=== PATIENT | male | born 1955 | race Caucasian/White ===

== ENCOUNTER 2019-02-09 18:52 | Emergency (ER) | payer BC ==
[2019-02-09 19:09] VITALS: TEMP 98.4
[2019-02-09] MEDS ORDERED: HYDROcodone/APAP 7.5-325MG 1 EACH TAB PO ONE ×2 (19:17→19:24)
--- NOTE | 2019-02-09 19:42 | XR ---
EXAMINATION TYPE: XR chest 2V DATE OF EXAM: 02/09/2019 COMPARISON: NONE HISTORY: Trauma. Fall. Pain. TECHNIQUE: Frontal and lateral views of the chest are obtained. FINDINGS: Heart and mediastinum are normal. Lungs are clear. Diaphragm is normal. There are surgical clips at the base of the neck on the right side. There is no sign of pleural effusion or pneumothora x. IMPRESSION: No active cardiopulmonary disease. Normal heart.
--- NOTE | 2019-02-09 19:43 | XR ---
EXAMINATION TYPE: XR wrist complete LT DATE OF EXAM: 02/09/2019 COMPARISON: NONE HISTORY: Fall. Pain. TECHNIQUE: 4 views FINDINGS: There is impacted comminuted transverse fracture distal radial metaphysis. There is no disl ocation. Distal ulna is intact. IMPRESSION: Impacted distal radius comminuted fracture.
--- NOTE | 2019-02-09 19:45 | XR ---
EXAMINATION TYPE: XR hand complete LT DATE OF EXAM: 02/09/2019 COMPARISON: NONE HISTORY: Fall. Pain. TECHNIQUE: 3 views FINDINGS: Metacarpals are intact. Carpal bones are intact. There is impacted distal radius comminuted fracture. Distal ulna is intact. There is no dislocation. Interphalangeal joint spaces are fairly no rmal. There is 4 mm metallic foreign body in the soft tissues between first and second metacarpals. IMPRESSION: Impacted comminuted distal radius fracture. Small metallic foreign body.
[2019-02-09] MEDS ORDERED: MORPHINE SULFATE 4 MG/ML SYRINGE IM STA (20:25)
--- NOTE | 2019-02-09 21:10 | ED ---
General Adult HPI - General Chief complaint: Extremity Injury, Upper Stated complaint: Wrist injury Time Seen by Provider: 02/09/19 19:09 Source: patient, family, RN notes reviewed, old records reviewed Mode of arrival: ambulatory Limitations: no limitations - History of Present Illness Initial comments: 63-year-old male patient comes to ED after sustaining a fall approximately 4 feet off a ladder. Patient says he became unstable, fell onto his left side of his left outstretched arm. He denies any trauma to head or neck. Patient denies any use of blood thinners. Patient primary complaint is left wrist pain at the distal radius. Patient denies any other complaints. Patient ambulatory without difficulty. Patient denies any difficulty breathing, pain in chest, pain abdomen. Patient denies any headache, changes in vision, cervical spinal pain. Patient denies any back pain. Patient denies any loss of bowel or bladder control, saddle anesthesia, lower extremity weakness. Systemic: Pt denies fatigue, myalgia, fever/chills, rash. Pt denies weakness, night sweats, weight loss. Neuro: Pt denies headache, visual disturbances, syncope or pre-syncope. HEENT: Pt denies ocular discharge or irritation, otalgia, rhinorrhea, pharyngitis or notable lymphadenopathy. Cardiopulmonary: Pt denies chest pain, SOB, heart palpitations, dyspnea on exe rtion. Abdominal/GI: Pt denies abdominal pain, n/v/d. : Pt denies dysuria, burning w/ urination, frequency/urgency. Denies new onset urinary or bowel incontinence. MSK: Pt denies myalgia, loss of strength or function in extremities. Neuro: Pt denies new onset weakness, paresthesias. - Related Data Home Medications Medication Instructions Recorded Confirmed Atorvastatin Calcium [Lipitor] 20 mg PO HS 03/06/14 10/12/17 Ranitidine HCl [Zantac] 150 mg PO HS 03/06/14 10/12/17 Levothyroxine Sodium [Synthroid] 100 mcg PO DAILY 10/12/17 10/12/17 Allergies Allergy/AdvReac Type Severity Reaction Status Date / Time moxifloxacin HCl Allergy Unknown Unknown Verified 02/09/19 19:08 [From Avelox] Review of Systems ROS Statement: Those systems with pertinent positive or pertinent negative responses have been documented in the HPI. ROS Other: All systems not noted in ROS Statement are negative. 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 Past Anesthesia/Blood Transfusion Reactions: No Reported Reaction, Family History of Problems w/ Anesthesia Additional Past Anesthesia/Blood Transfusion Reaction / Comment(s): paternal niece had some kind of problem w/anesthesia-possibly seizure?-unsure Past Psychological History: No Psychological Hx Reported Smoking Status: Former smoker Past Alcohol Use History: None Reported Past Drug Use History: None Reported - Past Family History Father Family Medical History: Cancer, Coronary Artery Disease (CAD), Diabetes Mellitus Mother Family Medical History: Cancer General Exam - General Exam Comments Initial Comments: Constitutional: NAD, AOX3, Pt has pleasant affect. HEENT: NC/AT, trachea midline, neck supple, no lymphadenopathy. Posterior pharynx non erythematous, without exudates. External ears appear normal, without discharge. Mucous membranes moist. Eyes PERRLA, EOM intact. There is no scleral icterus. No pallor noted. Cardiopulmonary: RRR, no murmurs, rubs or gallops, no JVD noted. Lungs CTAB in anterior and posterior goss. No peripheral edema. Abdominal exam: Abdomen soft and non-distended. Abdomen non-tender to palpation in all 4 quadrants. Bowel sounds active in LLQ. No hepatosplenomegaly. No ecchymosis Neuro: CN II-XII intact. No nuchal rigidity. No focal deficit, no facial droop. No cervical spinal tenderness. MSK: Mild tenderness to palpation at distal radius. Patient full range of motion of hand. Radial pulse +2. Activity for less than 2 seconds. Patient placed in thumb spica splint. Neurovascularly intact after splint placement. No posterior calf tenderness bilaterally, homans sign negative bilaterally. Posterior tibialis and radial pulse +2 bilaterally. Sensation intact in upper and lower extremities. Full active ROM in upper and lower extremities, 5/5 stregnth. Limitations: no limitations Course Vital Signs 02/09/19 19:05 Temperature 98.4 F Pulse Rate 74 Respiratory 18 Rate Blood Pressure 147/76 O2 Sat by Pulse 99 Oximetry Medical Decision Making - Medical Decision Making 63-year-old male patient comes to ED after sustaining a fall approximately 4 feet off a ladder. Patient says he became unstable, fell onto his left side of his left outstretched arm. He denies any trauma to head or neck. Patient denies any use of blood thinners. Patient primary complaint is left wrist pain at the distal radius. Patient denies any other complaints. Patient ambulatory without difficulty. Patient denies any difficulty breathing, pain in chest, pain abdomen. Patient denies any headache, changes in vision, cervical spinal pain. Patient denies any back pain. Patient denies any loss of bowel or bladder control, saddle anesthesia, lower extremity weakness. Pt VSS, afebrile. Physical exam displayed: Mild tenderness to palpation at distal radius. Patient full range of motion of hand. Radial pulse +2. Activity for less than 2 seconds. Patient placed in thumb spica splint. Neurovascularly intact after splint placement. Plain film of hand and wrist displayed impacted comminuted distal radius fracture. Chest x-ray splint acute process. This from work, patient stated metal, also states that is possible that this is left from the site of an implant during cx treatment. Nonacute finding. Patient placed in thumb spica splint. Patient to follow up with orthopedic surgeon tomorrow. Per patient request, [facility] Patient return to ER if condition worsens. Case discussed with Dr. Amaral Disposition Clinical Impression: Distal radius fracture Disposition: HOME SELF-CARE Condition: Stable Instructions (If sedation given, give patient instructions): Wrist Fracture in Adults (ED) Additional Instructions: Patient to adhere to previously discussed treatment plan and will take medication(s) as directed. Patient to follow up with PCP in 1-2 days. Patient to return to ED if symptoms do not improve. Follow up with orthopedic surgeon tomorrow. Return to ER if condition worsens. Is patient prescribed a controlled substance at d/c from ED?: No Referrals: Fernando Moran MD [Primary Care Provider] - 1-2 days Kai Romero DO [Medical Doctor] - 1-2 days Frandy Garibay DO [Doctor of Osteopathic Medicine] - 1-2 days
[2019-02-09 21:16] VITALS: BP 134/65; PULSE 78; RESP 16
== END 2019-02-09 21:14 | disposition home or self-care (01) ==
LOC: EC 18:52
DX: S52.592A Other fractures of lower end of left radius, initial encounter for closed fracture (principal); K21.9 Gastro-esophageal reflux disease without esophagitis; E07.9 Disorder of thyroid, unspecified; E78.5 Hyperlipidemia, unspecified; Z79.899 Other long term (current) drug therapy; Z79.890 Hormone replacement therapy; Z88.1 Allergy status to other antibiotic agents; Z85.828 Personal history of other malignant neoplasm of skin; Z87.891 Personal history of nicotine dependence; Z92.21 Personal history of antineoplastic chemotherapy; Z92.3 Personal history of irradiation; W11.XXXA Fall on and from ladder, initial encounter; Y92.009 Unspecified place in unspecified non-institutional (private) residence as the place of occurrence of the external cause
CPT/HCPCS: 73110; 73130; 71046; 99284; 29125; 96372; J2270

== ENCOUNTER → 2019-02-11 | Outpatient (CLI) | payer BC ==
[2019-02-11 13:34] LABS: Basophils % (A) 0 %; Eosinophils # (A) 0.2 k/uL (0-0.7); Eosinophils % (A) 2 %; HCT 45.9 % (39.0-53.0); Lymphocytes # (A) 0.9 k/uL (1.0-4.8); Lymphocytes % (A) 12 %; MCH 28.6 pg (25.0-35.0); MCHC 32.6 g/dL (31.0-37.0); MCV 87.7 fL (80.0-100.0); Monocytes # (A) 0.3 k/uL (0-1.0); Monocytes % (A) 3 %; Neutrophils # (A) 6.5 k/uL (1.3-7.7); Neutrophils % (A) 82 %; Platelet Count 218 k/uL (150-450); RBC 5.24 m/uL (4.30-5.90); RDW 13.2 % (11.5-15.5); WBC 7.9 k/uL (3.8-10.6)
[2019-02-11 13:35] LABS: Appearance,Urine Clear (Clear); Bilirubin,Urine Negative (Negative); Blood,Urine Negative (Negative); Color,Urine Yellow; Glucose,Urine (UA) Negative (Negative); Ketones,Urine Negative (Negative); Leukocyte Esterase,Urine Negative (Negative); Nitrite,Urine Negative (Negative); Protein,Urine Negative (Negative); Urobilinogen,Urine <2.0 mg/dL (<2.0)
[2019-02-11 13:43] LABS: INR 0.9 (<1.2); Partial Thromboplastin Time 22.1 sec (22.0-30.0); Prothrombin Time 9.8 sec (9.0-12.0)
[2019-02-11 14:08] LABS: ALT 28 U/L (21-72); AST 30 U/L (17-59); Albumin 4.5 g/dL (3.5-5.0); Albumin/Globulin Ratio 1.7; Alkaline Phosphatase 92 U/L (38-126); Anion Gap 10 mmol/L; Blood Urea Nitrogen 20 mg/dL (9-20); Calcium 10.1 mg/dL (8.4-10.2); Carbon Dioxide 25 mmol/L (22-30); Chloride 103 mmol/L (98-107); Globulin 2.6 g/dL; Glucose 167 mg/dL (74-99); Potassium 4.6 mmol/L (3.5-5.1); Sodium 138 mmol/L (137-145); Total Protein 7.1 g/dL (6.3-8.2)
== END ==
LOC: LABMAIN 13:01
PROVIDERS: ATTEND Family Medicine
DX: Z01.812 Encounter for preprocedural laboratory examination (principal)
CPT/HCPCS: 36415; 80053; 81003; 85025; 85610; 85730

== ENCOUNTER → 2019-02-17 | Day surgery (SDC) | payer BC ==
[2019-02-15 09:17] VITALS: BMI 27.1
[~2019-02-17] MED LIST: BUPIVACAIN-EPI 0.5%-1:200,000 30 ML VIAL SQ ONE; DEXAMETHASONE SOD PHOSPHATE 10 MG/ML 1 ML VIAL IV ONE; HYDROcodone/APAP 5-325MG 1 EACH TAB PO ONE; KETOROLAC 30 MG/ML 1 ML VIAL IVP ONE; LABETALOL SYRINGE 5 MG/ML IVP ONE; LACTATED RINGERS 1,000 ML IV ONE; LACTATED RINGERS 1,000 ML IV SCH; LIDOCAINE 1% 20 ML VIAL (10MG/ML) FOR IV START INTRADERMA ONE; LIDOCAINE 1% INJ 10MG/ML (20 ML MDV) ONE; LIDOCAINE 2%-EPI 1:100,000 20 ML VIAL ONE; MIDAZOLAM (PF) 2 MG/2 ML VIAL IV ONE; MIDAZOLAM 2 MG/2 ML VIAL IV PRN; MIDAZOLAM 2 MG/2 ML VIAL ONE; ONDANSETRON 4 MG/2 ML VIAL IVP ONE; PROPOFOL 10 MG/ML 20 ML VIAL IV ONE; ROPIVACAINE 5 MG/ML 30 ML VIAL ONE; SCOPOLAMINE 1.5MG/72HR PATCH TRANSDERM ONE; SUCCINYLCHOLINE CHLORIDE 100 MG/5 ML SYR IV ONE; ceFAZolin IN SWFI 2 GM/20 ML SYRINGE IVP ONE; fentaNYL (PF) 50 MCG/ML 2 ML AMP ONE
[2019-02-17 17:25] VITALS: TEMP 97.5
[2019-02-17] MEDS: MEPERIDINE 50 MG/ML SYRINGE IVP ONE ×2 (17:36→17:42)
[2019-02-17] MEDS: HYDROmorphone 0.5 MG/0.5 ML SYRINGE IVP PRN ×3 (17:36→18:05)
--- NOTE | 2019-02-17 17:42 | FL ---
EXAMINATION TYPE: FL guidance operating room, XR wrist limited LT DATE OF EXAM: 02/17/2019 CLINICAL HISTORY: Left wrist fracture. TECHNIQUE: Fluoroscopy. Intraoperative limited views left wrist. COMPARISON: Left wrist x-ray February 09, 2019.. FINDINGS: Fluoroscopic guidance was provided during open reduction internal fixation procedure perfo rmed by Dr. Romero. A total of 1 minute 44 seconds of fluoroscopic time was utilized during the procedure and 2 spot intraoperative images are acquired. Intraoperative images acquired show placement of dorsal fixating plate through comminuted intra-artic ular fracture distal radial meta-epiphysis with stable alignment. IMPRESSION: As Above.
[2019-02-17 18:19] VITALS: RESP 17
[2019-02-17 18:31] VITALS: BP 140/82; PULSE 83
--- NOTE | 2019-02-18 10:19 | P.ONQ ---
Anesthesiology Proc Note - PNB - Peripheral Nerve Block Performed Left Infraclavicular Single Time Out Performed: Yes (1300) Procedure Start Time: 13:00 Procedure Stop Time: 13:10 Indication: Acute Post-Operative Pain, Dx/Pain Location (Left wrist pain), Requested by physician Sedation Type: Sedate with meaningful contact maintained Preparation: Sterile Prep Position: Supine Catheter: None Needle Types: On-Q Needle Size: 100mm (4") Needle Gauge: 21 Technique: Ultrasound Injectate: 0.5% Ropivacaine (see comment for volume) (20ml) Blood Aspirated: No Pain Paresthesia on Injection Noted: No Resistance on Injection: Normal Events: Uneventful and Well Tolerated
--- NOTE | 2019-02-18 15:34 | P.OP ---
Date of Procedure: 02/17/19 Preoperative Diagnosis: Comminuted, extra-articular left distal radius fracture (3-part) Postoperative Diagnosis: Comminuted, extra-articular left distal radius fracture (3-part) Procedure(s) Performed: Open reduction and internal fixation of comminuted, extra-articular left distal radius fracture (3-part) Implants: [employer]umed Acu-Loc2 standard left volar locking plate Anesthesia: GETA, regional, local Surgeon: Kai Romero Refinery Operator #1: Meg Allen Estimated Blood Loss (ml): 5 Condition: stable Disposition: PACU Indications for Procedure: The patient is a 63-year-old male who sustained a distal radius fracture after a fall from a ladder. Treatment options (and associated risks and benefits) were discussed in the office. Surgical treatment was recommended. In preop, the patient denied any additional questions or concerns and wished to proceed with surgery. Consent forms were signed. The operative site was confirmed and marked. Description of Procedure: The patient was administered a regional nerve block by the anesthesia team and then was brought to the operating suite. The patient was positioned supine with the operative limb on an arm board. All bony prominences were well-padded. Anesthesia was administered uneventfully. Prophylactic IV antibiotics were administered. A tourniquet was placed on the operative arm which was then prepped and draped in standard, sterile fashion. A timeout was performed which confirmed the patient, the operative side, the site and the procedure to be performed. All team members expressed agreement. The limb was exsanguinated with an Esmarch and the tourniquet was inflated. A standard volar FCR approach was utilized. The skin was incised sharply. The subcutaneous tissue were bluntly spread. The FCR sheath was incised and the tendon was mobilized. The radial artery was identified and protected throughout the case. Blunt dissection proceeded down to the pronator quadratus. There was a traumatic, transverse rent in the muscle belly at the level of the fracture. This was sharply extended along its radial border and & elevated ulnarly. The fracture site was visualized. The primary fracture line was transverse across the metaphysis. There was a separate fragment of the volar metaphyseal cortex with comminution dorsally. A manual reduction was performed but full church of radial height was not achieved. The brachioadialis tendon was identified and partially released to alleviate its deforming force, taking care to protect the first dorsal compartment tendons. A Beaufort elevator was used to gently release the impacted dorsal fragments and manipulate the position of the fracture fragments. The reduction maneuver was repeated and satisfactory initial alignment was confirmed with fluoroscopy. With the fracture held in reduced position, a 0.062 K wire was inserted percutaneously into the radial styloid and advanced across the fracture and into metaphysis for provisional reduction. This did not afford satisfactory stability and a second K wire was introduced in a similar fashion. The plate was selected, based on the patients anatomy and fracture pattern, and was positioned on the volar radius. It was provisionally pinned in place with K- wires and its position was confirmed on imaging. A cortical screw was drilled, measured and inserted into the oblong hole of the shaft. The position of the plate was checked on orthogonal views: residual dorsal angulation remained. The distal K wires holding the plate were removed. The K wires in the styloid were backed out and the fracture was re-reduced, using the plate as a reduction tool. The percutaneous K wires were readvanced to stabilize the fracture. Provisional K wires were reinserted to secure the plate in position. Fracture reduction and plate position were confirmed on orthogonal imaging. Locking screws were then drilled, measured and inserted distally, confirming length and trajectory with fluoroscopy. The screws were drilled without violating the dorsal cortex. An additional cortical screw was drilled and inserted to further secure the plate to the metaphysis. The percutaneous and provisional K wires were removed. Final x-rays were obtained which revealed satisfactory reduction of the fracture. A 20-degree inclined lateral view was obtained to confirm extra-articular screw placement. The wrist was then ranged under live fluoroscopy - no motion of the fracture fragments or fixation construct was appreciated. The tourniquet was released after 77 minutes at 250 mm Hg. Hemostasis was obtained with electrocautery. The wound was thoroughly irrigated with normal saline. The pronator was loosely repaired with interrupted 2-0 Vicryl sutures. The subcutaneous tissues were reapproximated with interrupted 3-0 Vicryl sutures. The incision was closed with a running 4-0 nylon suture. Marcaine with epinephrine was injected into the perioperative subcutaneous tissues for adjunctive postoperative pain control and hemostasis. A sterile dressing was applied followed by a resting volar splint. All sponge, needle and instrument counts were correct at the end of the case. The patient tolerated the procedure well and was taken to the recovery room in stable condition.
== END | disposition home or self-care (01) ==
LOC: OR 11:49
PROVIDERS: ATTEND Orthopaedic Surgery
DX: S52.552A Other extraarticular fracture of lower end of left radius, initial encounter for closed fracture (principal); W11.XXXA Fall on and from ladder, initial encounter; E78.5 Hyperlipidemia, unspecified; E03.9 Hypothyroidism, unspecified; K21.9 Gastro-esophageal reflux disease without esophagitis; Z87.891 Personal history of nicotine dependence; Z85.819 Personal history of malignant neoplasm of unspecified site of lip, oral cavity, and pharynx; Z79.890 Hormone replacement therapy; Z79.891 Long term (current) use of opiate analgesic; Z79.899 Other long term (current) drug therapy; Z88.1 Allergy status to other antibiotic agents
CPT/HCPCS: 25607; 64415; 73100; C1713; J2250 ×2; J1100; J2175; J2405; J2001; J3010; J1885; J2795; J0330; J2704; J1170; J0690; 64413

== ENCOUNTER 2021-07-25 15:21 | Emergency (ER) | payer BC ==
[2021-07-25 16:45] VITALS: TEMP 98.6
[2021-07-25 17:31] LABS: Basophils % (A) 0 %; Eosinophils # (A) 0.1 k/uL (0-0.7); Eosinophils % (A) 1 %; HCT 42.6 % (39.0-53.0); Lymphocytes # (A) 1.2 k/uL (1.0-4.8); Lymphocytes % (A) 9 %; MCH 29.2 pg (25.0-35.0); MCV 88.6 fL (80.0-100.0); Mean Platelet Volume 7.9; Monocytes # (A) 0.5 k/uL (0-1.0); Monocytes % (A) 4 %; Neutrophils % (A) 85 %; Platelet Count 204 k/uL (150-450); RBC 4.81 m/uL (4.30-5.90); RDW 12.6 % (11.5-15.5); WBC 12.9 k/uL (3.8-10.6)
[2021-07-25 17:40] LABS: INR 0.9 (<1.2); Partial Thromboplastin Time 23.1 sec (22.0-30.0); Prothrombin Time 10.1 sec (9.0-12.0)
[2021-07-25 17:45] LABS: ALT 28 U/L (4-49); AST 37 U/L (17-59); African American GFR (CKD) >90 (>60 ml/min/1.73 sqM); Albumin 4.3 g/dL (3.5-5.0); Alkaline Phosphatase 113 U/L (38-126); Anion Gap 8 mmol/L; Blood Urea Nitrogen 22 mg/dL (9-20); Calcium 9.8 mg/dL (8.4-10.2); Carbon Dioxide 24 mmol/L (22-30); Chloride 105 mmol/L (98-107); Glucose 95 mg/dL (74-99); Non-African American GFR(CKD) 78 (>60 ml/min/1.73 sqM); Potassium 4.3 mmol/L (3.5-5.1); Sodium 137 mmol/L (137-145); Total Bilirubin 1.4 mg/dL (0.2-1.3); Total Protein 7.1 g/dL (6.3-8.2)
[2021-07-25] MEDS ORDERED: ASPIRIN 81 MG PO STA (19:16)
--- NOTE | 2021-07-25 19:17 | ED ---
General Adult HPI - General Chief complaint: Chest Pain Stated complaint: Abnormal EKG Time Seen by Provider: 07/25/21 18:58 Source: patient Mode of arrival: ambulatory Limitations: no limitations - History of Present Illness Initial comments: Dictation was produced using [employer] dictation software. please excuse any grammatical, word or spelling errors. Chief Complaint: 66-year-old male presents with episode of chest pain a week ago History of Present Illness: 66-year-old male history of cancer COPD dyslipidemia presents to the emergency department for abnormal EKG. Patient with his primary care physician for a checkup. He is told his PCP that he had episode of chest pain a days ago he states that it was a sharp pain to his anterior chest. It lasted for couple minutes then resolved spontaneously. No associated diaphores is, shortness of breath or no radiation. Patient has not had any chest pain since. He told his primary care doctor about it and EKG was performed. He was told that his EKG was abnormal and that he should come to the emergency department to be evaluated. Patient has a history of dyslipidemia. No history of hypertension or diabetes. He is nonsmoker and never smoked. He does have some family history of cardiac disease. He is completely asymptomatic at this time he has no complaints. The ROS documented in this emergency department record has been reviewed and confirmed by me. Those systems with pertinent positive or negative responses have been documented in the HPI. All other systems are other negative and/or noncontributory. PHYSICAL EXAM: General Impression: Alert and oriented x3, not in acute distress HEENT: Normocephalic atraumatic, extra-ocular movements intact, pupils equal and reactive to light bilaterally, mucous membranes moist. Cardiovascular: Heart regular rate and rhythm Chest: Able to complete full sentences, no retractions, no tachypnea Abdomen: abdomen soft, non-tender, non-distended, no organomegaly Musculoskeletal: Pulses present and equal in all extremities, no peripheral edema Motor: no focal deficits noted Neurological: CN II-XII grossly intact, no focal motor or sensory deficits noted Skin: Intact with no visualized rashes Psych: Normal affect and mood ED course: 66-year-old male presents to the emergency department for chest pain experience a days ago. It sounded like he was atypical. Patient has no history of coronary artery disease. Ends upon arrival are within acceptable limits. Patient is well-appearing at the bedside. EKG from primary care physician's office was reviewed showing S waves that were circled. EKG from primary care physician's office does not show any signs of ischemia or infarction. Patient's history is very atypical. EKG performed here is unremarkable. Labs as ordered by a TPA. CBC, coag panel, metabolic panel is unremarkable. Troponin is negative. Disposition options were discussed with patient. He was encouraged to stay for a second troponin however did not want to wait. He lives nearby and to return to the emergency department if he has any issues. EKG interpretation: Ventricular rate 76, normal sinus rhythm, NH interval 170, QRS 80, QTc 441. No NH prolongation, no QTC prolongation, no ST or T-wave changes noted. Overall, this EKG is unremarkable - Related Data Home Medications Medication Instructions Recorded Confirmed Atorvastatin Calcium [Lipitor] 20 mg PO HS 03/06/14 02/17/19 Ranitidine HCl [Zantac] 150 mg PO HS 03/06/14 02/17/19 Levothyroxine Sodium [Synthroid] 150 mcg PO DAILY 10/12/17 02/17/19 Acetaminophen Tab [Tylenol Tab] 650 mg PO Q4H PRN 02/15/19 02/17/19 HYDROcodone/APAP 5-325MG [[place] 1 tab PO Q6HR PRN 02/15/19 02/17/19 5-325] Allergies Allergy/AdvReac Type Severity Reaction Status Date / Time moxifloxacin HCl Allergy Unknown Rash/Hives Verified 07/25/21 16:44 [From Avelox] Review of Systems ROS Statement: Those systems with pertinent positive or pertinent negative responses have been documented in the HPI. ROS Other: All systems not noted in ROS Statement are negative. 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 Past Anesthesia/Blood Transfusion Reactions: No Reported Reaction Additional Past Anesthesia/Blood Transfusion Reaction / Comment(s): "PATIENT STATES NO KNOWN FAMILY PROBLEM WITH ANESTHESIA " Past Psychological History: No Psychological Hx Reported Smoking Status: Never smoker Past Alcohol Use History: Occasional Past Drug Use History: None Reported - Past Family History Father Family Medical History: Cancer, Diabetes Mellitus Mother Family Medical History: Cancer Sister(s) Family Medical History: Cancer General Exam Limitations: no limitations Course Vital Signs 07/25/21 16:42 Temperature 98.6 F Pulse Rate 77 Respiratory 18 Rate Blood Pressure 116/66 O2 Sat by Pulse 98 Oximetry Medical Decision Making - Lab Data Result diagrams: 07/25/21 17:07 07/25/21 17:07 Lab Results 07/25/21 07/25/21 07/25/21 Range/Units 17:07 17:07 17:07 WBC 12.9 H (3.8-10.6) k/uL RBC 4.81 (4.30-5.90) m/uL Hgb 14.0 (13.0-17.5) gm/dL Hct 42.6 (39.0-53.0) % MCV 88.6 (80.0-100.0) fL MCH 29.2 (25.0-35.0) pg MCHC 33.0 (31.0-37.0) g/dL RDW 12.6 (11.5-15.5) % Plt Count 204 (150-450) k/uL MPV 7.9 Neutrophils % 85 % Lymphocytes % 9 % Monocytes % 4 % Eosinophils % 1 % Basophils % 0 % Neutrophils # 11.0 H (1.3-7.7) k/uL Lymphocytes # 1.2 (1.0-4.8) k/uL Monocytes # 0.5 (0-1.0) k/uL Eosinophils # 0.1 (0-0.7) k/uL Basophils # 0.0 (0-0.2) k/uL PT 10.1 (9.0-12.0) sec INR 0.9 (<1.2) APTT 23.1 (22.0-30.0) sec Sodium 137 (137-145) mmol/L Potassium 4.3 (3.5-5.1) mmol/L Chloride 105 (98-107) mmol/L Carbon Dioxide 24 (22-30) mmol/L Anion Gap 8 mmol/L BUN 22 H (9-20) mg/dL Creatinine 1.00 (0.66-1.25) mg/dL Est GFR (CKD-EPI)AfAm >90 (>60 ml/min/1.73 sqM) Est GFR (CKD-EPI)NonAf 78 (>60 ml/min/1.73 sqM) Glucose 95 (74-99) mg/dL Calcium 9.8 (8.4-10.2) mg/dL Total Bilirubin 1.4 H (0.2-1.3) mg/dL AST 37 (17-59) U/L ALT 28 (4-49) U/L Alkaline Phosphatase 113 (38-126) U/L Troponin I (0.000-0.034) ng/mL Total Protein 7.1 (6.3-8.2) g/dL Albumin 4.3 (3.5-5.0) g/dL 07/25/21 Range/Units 17:07 WBC (3.8-10.6) k/uL RBC (4.30-5.90) m/uL Hgb (13.0-17.5) gm/dL Hct (39.0-53.0) % MCV (80.0-100.0) fL MCH (25.0-35.0) pg MCHC (31.0-37.0) g/dL RDW (11.5-15.5) % Plt Count (150-450) k/uL MPV Neutrophils % % Lymphocytes % % Monocytes % % Eosinophils % % Basophils % % Neutrophils # (1.3-7.7) k/uL Lymphocytes # (1.0-4.8) k/uL Monocytes # (0-1.0) k/uL Eosinophils # (0-0.7) k/uL Basophils # (0-0.2) k/uL PT (9.0-12.0) sec INR (<1.2) APTT (22.0-30.0) sec Sodium (137-145) mmol/L Potassium (3.5-5.1) mmol/L Chloride (98-107) mmol/L Carbon Dioxide (22-30) mmol/L Anion Gap mmol/L BUN (9-20) mg/dL Creatinine (0.66-1.25) mg/dL Est GFR (CKD-EPI)AfAm (>60 ml/min/1.73 sqM) Est GFR (CKD-EPI)NonAf (>60 ml/min/1.73 sqM) Glucose (74-99) mg/dL Calcium (8.4-10.2) mg/dL Total Bilirubin (0.2-1.3) mg/dL AST (17-59) U/L ALT (4-49) U/L Alkaline Phosphatase (38-126) U/L Troponin I <0.012 (0.000-0.034) ng/mL Total Protein (6.3-8.2) g/dL Albumin (3.5-5.0) g/dL Disposition Clinical Impression: Chest pain Disposition: HOME SELF-CARE Condition: Good Instructions (If sedation given, give patient instructions): Chest Pain (ED) Is patient prescribed a controlled substance at d/c from ED?: No Referrals: Fernando Moran MD [Primary Care Provider] - 1-2 days
[2021-07-25 19:56] VITALS: BP 125/80; PULSE 82; RESP 16
== END 2021-07-25 19:22 | disposition home or self-care (01) ==
LOC: EC 15:21
DX: R07.89 Other chest pain (principal); J44.9 Chronic obstructive pulmonary disease, unspecified; K21.9 Gastro-esophageal reflux disease without esophagitis; E78.5 Hyperlipidemia, unspecified; E07.9 Disorder of thyroid, unspecified; Z85.818 Personal history of malignant neoplasm of other sites of lip, oral cavity, and pharynx
CPT/HCPCS: 36415; 80053; 84484; 85025; 85610; 85730; 99285

== ENCOUNTER 2024-03-05 02:55 | Emergency (ER) | payer BC, MEDICARE ==
[2024-03-05 03:32] LABS: Glucose,Whole Blood 191 mg/dL (70-110)
--- NOTE | 2024-03-05 03:41 | ED ---
General Adult HPI - General Chief complaint: Altered Mental Status Stated complaint: AMS Time Seen by Provider: 03/05/24 03:27 Source: family Mode of arrival: ambulatory - History of Present Illness Initial comments: Dictation was produced using [employer] dictation software. please excuse any grammatical, word or spelling errors. Chief Complaint: 68-year-old male presents to the emergency department for altered mentation History of Present Illness: Patient 68-year-old male. History of present illness obtained from family members at the bedside. They report that patient is having a TIA. He states that they were in [place] recently he was diagnosed with TIA from the eye doctor and while he was in [place]. Patient went to bed in usual state of health. Family were at the bedside who is a broken sleeper noticed that he woke up this displaying signs of bizarre behavior including whistling and hallucinations. 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 He also reports that he had difficulty walking. Patient denies any complaints. He states that his family is overreacting to what his symptoms are. The ROS documented in this emergency department record has been reviewed and confirmed by me. Those systems with pertinent positive or negative responses have been documented in the HPI. All other systems are other negative and/or noncontributory. - Related Data Home Medications Medication Instructions Recorded Confirmed Atorvastatin Calcium [Lipitor] 20 mg PO HS 03/06/14 02/17/19 Ranitidine HCl [Zantac] 150 mg PO HS 03/06/14 02/17/19 Levothyroxine Sodium [Synthroid] 150 mcg PO DAILY 10/12/17 02/17/19 Acetaminophen Tab [Tylenol Tab] 650 mg PO Q4H PRN 02/15/19 02/17/19 HYDROcodone/APAP 5-325MG [[place] 1 tab PO Q6HR PRN 02/15/19 02/17/19 5-325] Allergies Allergy/AdvReac Type Severity Reaction Status Date / Time moxifloxacin HCl Allergy Unknown Rash/Hives Verified 03/05/24 03:04 [From Avelox] Review of Systems ROS Statement: Those systems with pertinent positive or pertinent negative responses have been documented in the HPI. ROS Other: All systems not noted in ROS Statement are negative. 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 Past Anesthesia/Blood Transfusion Reactions: No Reported Reaction Additional Past Anesthesia/Blood Transfusion Reaction / Comment(s): "PATIENT STATES NO KNOWN FAMILY PROBLEM WITH ANESTHESIA " Past Psychological History: No Psychological Hx Reported Smoking Status: Never smoker Past Alcohol Use History: Occasional Past Drug Use History: None Reported - Past Family History Father Family Medical History: Cancer, Diabetes Mellitus Mother Family Medical History: Cancer Sister(s) Family Medical History: Cancer General Exam - General Exam Comments Initial Comments: PHYSICAL EXAM: General Impression: Alert and oriented x3, not in acute distress HEENT: Normocephalic atraumatic, extra-ocular movements intact, pupils equal and reactive to light bilaterally, mucous membranes moist. Cardiovascular: Heart regular rate and rhythm Chest: Able to complete full sentences, no retractions, no tachypnea Abdomen: abdomen soft, non-tender, non-distended, no organomegaly Musculoskeletal: Pulses present and equal in all extremities, no peripheral sean a Motor: no focal deficits noted Neurological: CN II-XII grossly intact, no focal motor or sensory deficits noted, NIH of 0 Skin: Intact with no visualized rashes Psych: Normal affect and mood Course Vital Signs 03/05/24 03/05/24 03/05/24 02:59 04:00 05:00 Temperature 98.2 F Pulse Rate 104 H 94 89 Respiratory 18 10 L 29 H Rate Blood Pressure 121/72 101/61 101/73 O2 Sat by Pulse 96 97 97 Oximetry - Reevaluation(s) Reevaluation #1: 03/05/24 03:40 Patient has NIH score of 0. Family reports that his symptoms began 1 hour ago however he was last seen normal last night. Clinical presentation does not reveal any focal neurologic deficits to suggest TIA or CVA. Family explains th at symptoms were more or less like vague altered mentation including symptoms of brief episode of gait difficulties, hallucinations and random whistling in the middle of the night EKG Findings - EKG Comments: EKG Findings:: My EKG interpretation: Ventricular rate 95, sinus rhythm,. 144, QRS 101, QTc 401. No KS prolongation, no QTC prolongation, no ST or T-wave changes noted. Overall, this EKG is unremarkable Medical Decision Making - Medical Decision Making Was pt. sent in by a medical professional or institution (, SIMI, DIGITAL MARKETING SPECIALIST, urgent care, hospital, or prison...) When possible be specific @ -No Did you speak to anyone other than the patient for history (EMS, parent, family, police, friend...)? What history was obtained from this source @ -No Did you review nursing and triage notes (agree or disagree)? Why? @ -I reviewed and agree with nursing and triage notes Were old charts reviewed (outside hosp., previous admission, EMS record, old EKG, old radiological studies, urgent care reports/EKG's, prison records)? Report findings @ -No old charts were reviewed Differential Diagnosis (chest pain, altered mental status, abdominal pain women, abdominal pain men, vaginal bleeding, musculoskeletal, weakness, fever, dyspnea, syncope, headache, dizziness, GI bleed, back pain, seizure, CVA, palpatations, mental health)? @ -Differential Altered Mental Status: Hypoglycemia, DKA, hypercapnia, ETOH, overdose, CO poisoning, trauma, myxedema coma, HTN encephalopathy, infection, encephalitis, psychosis, intercranial hemorrhage, hepatic encephalopathy, meningitis, CVA, this is not meant to be an all-inclusive list EKG interpreted by me (3pts min.). @ -See above X-rays interpreted by me (1pt min.). @ -Chest x-ray is nonacute CT interpreted by me (1pt min.). @ -CT brain is nonacute U/S interpreted by me (1pt. min.). @ -None done What testing was considered but not performed or refused? (CT, X-rays, U/S, labs)? Why? @ -None What meds were considered but not given or refused? Why? @ -None Did you discuss the management of the patient with other professionals (professionals i.e. SIMI Andrade, DIGITAL MARKETING SPECIALIST, lab, RT, psych nurse, protective services social worker, ornamental rail installer, teacher, aeronautical engineering officer, dependency case manager)? Give summary @ -No Was smoking cessation discussed for >3mins.? @ -No Was critical care preformed (if so, how long)? @ -No Were there social determinants of health that impacted care today? How? (Homelessness, low income, unemployed, alcoholism, drug addiction, transportation, low edu. Level, literacy, decrease access to med. care, long term, rehab)? @ -No Was there de-escalation of care discussed even if they declined (Discuss DNR or withdrawal of care, Hospice)? DNR status @ -No What co-morbidities impacted this encounter? (DM, HTN, Smoking, COPD, CAD, Canc er, CVA, ARF, Chemo, Hep., AIDS, mental health diagnosis, sleep apnea, morbid obesity)? @ -None Was patient admitted / discharged? Hospital course, mention meds given and route, prescriptions, significant lab abnormalities, going to OR and other pertinent info. @ -68-year-old male presents emergency department for episode of bizarre behavior. Vital signs upon arrival are within acceptable limits. Physical examination is benign. Patient is alert and oriented x 4 with NIH score of 0. Patient having no gait abnormalities. Explanation of patient's symptoms were nonfocal. Laboratory evaluation is unremarkable. CT imaging is negative. Patient observed emergency department for approximately 3 hours. Reevaluated bedside 5:48 AM on to be in stable medical condition. Disposition options were discussed with patient and family member at the bedside they request discharge to follow-up with primary care doctor. Return precautions discussed. Undiagnosed new problem with uncertain prognosis? @ -No Drug Therapy requiring intensive monitoring for toxicity (Heparin, Nitro, Insulin, Cardizem)? @ -No Were any procedures done? @ -No Diagnosis/symptom? Acute, or Chronic, or Acute on Chronic? Uncomplicated (without systemic symptoms) or Complicated (systemic symptoms)? @ -Bizarre behavior Side effects of treatment? @ -No Exacerbation, Progression, or Severe Exacerbation? @ -No Poses a threat to life or bodily function? How? (Chest pain, [place], GA, pneumonia, PE, COPD, DKA, ARF, appy, cholecystitis, CVA, Diverticulitis, Homicidal, Suicidal, threat to staff... and all critical care pts) @ -No - Lab Data Result diagrams: 03/05/24 03:25 03/05/24 03:25 Lab Results 03/05/24 03/05/24 03/05/24 Range/Units 03:25 03:25 03:25 WBC 12.8 H (3.8-10.6) k/uL RBC 4.98 (4.30-5.90) m/uL Hgb 14.2 (13.0-17.5) gm/dL Hct 43.8 (39.0-53.0) % MCV 88.0 (80.0-100.0) fL MCH 28.5 (25.0-35.0) pg MCHC 32.4 (31.0-37.0) g/dL RDW 12.8 (11.5-15.5) % Plt Count 213 (150-450) k/uL MPV 8.4 Neutrophils % 91 % Lymphocytes % 4 % Monocytes % 3 % Eosinophils % 1 % Basophils % 0 % Neutrophils # 11.6 H (1.3-7.7) k/uL Lymphocytes # 0.6 L (1.0-4.8) k/uL Monocytes # 0.3 (0-1.0) k/uL Eosinophils # 0.2 (0-0.7) k/uL Basophils # 0.1 (0-0.2) k/uL PT 10.7 (10.0-12.5) sec INR 1.0 (<1.2) APTT 24.9 (22.0-30.0) sec Sodium 136 L (137-145) mmol/L Potassium 4.4 (3.5-5.1) mmol/L Chloride 106 (98-107) mmol/L Carbon Dioxide 22 (22-30) mmol/L Anion Gap 8 mmol/L BUN 16 (9-20) mg/dL Creatinine 1.08 (0.66-1.25) mg/dL Est GFR (CKD-EPI)AfAm 81 (>60 ml/min/1.73 sqM) Est GFR (CKD-EPI)NonAf 70 (>60 ml/min/1.73 sqM) Glucose 202 H (74-99) mg/dL POC Glucose (mg/dL) (70-110) mg/dL POC Glu Application Security Developer ID Calcium 9.6 (8.4-10.2) mg/dL Total Bilirubin 0.8 (0.2-1.3) mg/dL AST 49 (17-59) U/L ALT 45 (4-49) U/L Alkaline Phosphatase 154 H (38-126) U/L Total Protein 6.8 (6.3-8.2) g/dL Albumin 4.1 (3.5-5.0) g/dL Serum Alcohol <10 mg/dL 03/05/24 Range/Units 03:31 WBC (3.8-10.6) k/uL RBC (4.30-5.90) m/uL Hgb (13.0-17.5) gm/dL Hct (39.0-53.0) % MCV (80.0-100.0) fL MCH (25.0-35.0) pg MCHC (31.0-37.0) g/dL RDW (11.5-15.5) % Plt Count (150-450) k/uL MPV Neutrophils % % Lymphocytes % % Monocytes % % Eosinophils % % Basophils % % Neutrophils # (1.3-7.7) k/uL Lymphocytes # (1.0-4.8) k/uL Monocytes # (0-1.0) k/uL Eosinophils # (0-0.7) k/uL Basophils # (0-0.2) k/uL PT (10.0-12.5) sec INR (<1.2) APTT (22.0-30.0) sec Sodium (137-145) mmol/L Potassium (3.5-5.1) mmol/L Chloride (98-107) mmol/L Carbon Dioxide (22-30) mmol/L Anion Gap mmol/L BUN (9-20) mg/dL Creatinine (0.66-1.25) mg/dL Est GFR (CKD-EPI)AfAm (>60 ml/min/1.73 sqM) Est GFR (CKD-EPI)NonAf (>60 ml/min/1.73 sqM) Glucose (74-99) mg/dL POC Glucose (mg/dL) 191 H (70-110) mg/dL POC Glu Application Security Developer ID Perez, Tawnya Calcium (8.4-10.2) mg/dL Total Bilirubin (0.2-1.3) mg/dL AST (17-59) U/L ALT (4-49) U/L Alkaline Phosphatase (38-126) U/L Total Protein (6.3-8.2) g/dL Albumin (3.5-5.0) g/dL Serum Alcohol mg/dL Disposition Clinical Impression: Altered mental status Disposition: HOME SELF-CARE Condition: Good Instructions (If sedation given, give patient instructions): Altered Mental Status (ED) Is patient prescribed a controlled substance at d/c from ED?: No Referrals: Randall West MD [Primary Care Provider] - 1-2 days Time of Disposition: 05:49
[2024-03-05 03:53] VITALS: RESP 18; TEMP 98.2
[2024-03-05 03:55] LABS: Basophils # (A) 0.1 k/uL (0-0.2); Basophils % (A) 0 %; Eosinophils # (A) 0.2 k/uL (0-0.7); Eosinophils % (A) 1 %; HCT 43.8 % (39.0-53.0); HGB 14.2 gm/dL (13.0-17.5); Lymphocytes # (A) 0.6 k/uL (1.0-4.8); Lymphocytes % (A) 4 %; MCH 28.5 pg (25.0-35.0); MCHC 32.4 g/dL (31.0-37.0); Mean Platelet Volume 8.4; Monocytes # (A) 0.3 k/uL (0-1.0); Monocytes % (A) 3 %; Neutrophils # (A) 11.6 k/uL (1.3-7.7); Neutrophils % (A) 91 %; Platelet Count 213 k/uL (150-450); RBC 4.98 m/uL (4.30-5.90); RDW 12.8 % (11.5-15.5); WBC 12.8 k/uL (3.8-10.6)
[2024-03-05 04:00] LABS: ALT 45 U/L (4-49); AST 49 U/L (17-59); African American GFR (CKD) 81 (>60 ml/min/1.73 sqM); Albumin 4.1 g/dL (3.5-5.0); Alcohol <10 mg/dL; Alkaline Phosphatase 154 U/L (38-126); Anion Gap 8 mmol/L; Blood Urea Nitrogen 16 mg/dL (9-20); Calcium 9.6 mg/dL (8.4-10.2); Carbon Dioxide 22 mmol/L (22-30); Chloride 106 mmol/L (98-107); Glucose 202 mg/dL (74-99); Non-African American GFR(CKD) 70 (>60 ml/min/1.73 sqM); Partial Thromboplastin Time 24.9 sec (22.0-30.0); Potassium 4.4 mmol/L (3.5-5.1); Prothrombin Time 10.7 sec (10.0-12.5); Sodium 136 mmol/L (137-145); Total Bilirubin 0.8 mg/dL (0.2-1.3); Total Protein 6.8 g/dL (6.3-8.2)
--- NOTE | 2024-03-05 05:33 | CT ---
EXAMINATION TYPE: CT brain wo con DATE OF EXAM: 03/05/2024 HISTORY: Pt arrives to the ER with family for AMS. Pt was slow to answer what year it is but is myra peralta. Pt per family is altered. Pt not acting himself. Pt has hx of TIA's CT DLP: 1271.5 mGycm. Automated Exposure Control for Dose Reduction was Utilized. TECHNIQUE: CT scan of the head is performed without contrast. COMPARISON: None. FINDINGS: There is no acute intracranial hemorrhage or midline shift identified. There is mild to m oderate diffuse ventricular and sulcal prominence consistent with diffuse age-related cerebral atroph y. There is mild to moderate low-attenuation in the periventricular white matter most likely consist ent with chronic small vessel ischemic change in patient of this age. The globes are intact and the visualized sinuses are clear. IMPRESSION: No acute intracranial hemorrhage or midline shift. There is [id number] diffuse ag e-related cerebral atrophy and probable chronic small vessel ischemic change noted.
[2024-03-05 06:34] VITALS: BP 104/65; PULSE 92
== END 2024-03-05 05:58 | disposition home or self-care (01) ==
LOC: EC 02:55
DX: R41.82 Altered mental status, unspecified (principal); Z88.8 Allergy status to other drugs, medicaments and biological substances; Z86.73 Personal history of transient ischemic attack (TIA), and cerebral infarction without residual deficits
CPT/HCPCS: 36415; 70450; 80053; 80320; 85025; 85610; 85730; 93005; 99285

== ENCOUNTER → 2024-03-07 | Outpatient (CLI) | payer MEDICARE ==
[2024-03-07 15:38] LABS: HCT 43.6 % (39.6-50.0); HGB 14.3 g/dL (13.0-17.0); MCH 28.8 pg (27.0-32.0); MCHC 32.8 g/dL (32.0-37.0); MCV 87.9 FL (80.0-97.0); Mean Platelet Volume 10.2 FL (9.5-12.2); NRBC Per 100 WBC 0 X 10*3/uL (0.00-0.01); Platelet Count 252 X 10*3/uL (140-440); RBC 4.96 X 10*6/uL (4.40-5.60); RDW 12.7 % (11.5-14.5); WBC 5.75 X 10*3/uL (4.50-10.00)
[2024-03-07 16:15] LABS: ALT 28 U/L (10-49); AST 21 U/L (14-35); Albumin 4.4 g/dL (3.8-4.9); Albumin/Globulin Ratio 1.69 Ratio (1.60-3.17); Alkaline Phosphatase 129 U/L (41-126); Blood Urea Nitrogen 19.7 mg/dL (9.0-27.0); Calcium 9.8 mg/dL (8.7-10.3); Carbon Dioxide 24.1 mmol/L (21.6-31.8); Chloride 104 mmol/L (96-109); Chol/HDL Ratio 3.76 Ratio; Globulin 2.6 g/dL (1.6-3.3); Glucose 144 mg/dL (70-110); LDL Cholesterol,Calculated 89.4 mg/dL (0.0-131.0); Potassium 4.4 mmol/L (3.5-5.5); Prostate Specific Antigen 1.56 ng/mL (0.000-4.500); Sodium 140 mmol/L (135-145); Total Bilirubin 0.7 mg/dL (0.3-1.2)
[2024-03-08 13:17] LABS: Protein S Antigen 111 % (50 - 140)
== END | disposition home or self-care (01) ==
LOC: LABWHC1 08:11
PROVIDERS: ATTEND Family Medicine
DX: I70.209 Unspecified atherosclerosis of native arteries of extremities, unspecified extremity (principal); I82.402 Acute embolism and thrombosis of unspecified deep veins of left lower extremity; G45.9 Transient cerebral ischemic attack, unspecified; E11.51 Type 2 diabetes mellitus with diabetic peripheral angiopathy without gangrene; J43.9 Emphysema, unspecified
CPT/HCPCS: 36415; 80053; 80061; 83036; 83090; 84153; 84443; 85027; 85302; 85305; 86038

== ENCOUNTER → 2025-05-02 | Outpatient (CLI) | payer MEDICARE ==
--- NOTE | 2025-05-02 07:58 | MR ---
EXAMINATION TYPE: MR Prostate wo/w con DATE OF EXAM: 05/02/2025 7:25 AM COMPARISON: None. CLINICAL INDICATION: Male, 69 years old with history of R97.20 elevated PSA; Elevated PSA. TECHNIQUE: Multi-planar, multi-sequence imaging of the pelvis is performed prior to and following the uncomplicated administration of bolus intravenous gadolinium. IV Contrast: 9 mL Gadobutrol Interpretive Criteria: PI-RADS v2.1 SERUM PSA: = 10.28 = 1..36 SURGICAL PATHOLOGY: No data available. FINDINGS: Prostatic dimensions: 5.1 x 4.9 x 2.7 cm. "Bullet" Volume: 44.16 (PSA density=0.23 ng/mL/mL) CENTRAL GLAND (Central and Transition Zones/CZ+TZ): Multiple bilateral, heterogenous appearing hypertrophic stromal nodules, without suspicious lesion. M edian lobe hypertrophy with protrusion into the base of the bladder. (PI-RADS 2) PERIPHERAL ZONE (PZ): Low T2 high DWI low ADC signal lesion the right peripheral zone apex measuring 9 x 6 mm. Bilateral li near, indistinct wedgelike areas of low ADC, and low T2 signal, No evidence of masslike abnormality, or localized perfusional hypervascularity, to further suggest a focus of clinically significant prost ate cancer. (PI-RADS 2) SEMINAL VESICLES (SV): Symmetric and unremarkable. PERIPROSTATIC TISSUES: Unremarkable. LYMPH NODES: No enlarged pelvic lymph node. REMAINING PELVIS: Bladder wall is within normal limits given distention. No abnormal free or organized intrapelvic fluid collection. No pathologic bowel dilation or mural thickening. Colonic diverticula are present. No hernia visualized OSSEOUS STRUCTURES: No suspicious osseous abnormality. IMPRESSION: 1. PI-RADS 4 Lesion in the right peripheral zone, apex measuring 8 x 6 mm. 2. Mild BPH, estimated gland volume : 44.16 (PSA density=0.23 ng/mL/mL) 3. No suspicious osseous lesion. No lymphadenopathy. No evidence of prostate adenocarcinoma involving the periprostatic tissues. [facility], , 05/02/2025 7:56 AM
== END | disposition home or self-care (01) ==
LOC: RADMRIMAIN 06:31
PROVIDERS: ATTEND Family Medicine
DX: N40.0 Benign prostatic hyperplasia without lower urinary tract symptoms (principal); R97.20 Elevated prostate specific antigen [PSA]
CPT/HCPCS: 72197; A9585